=== PATIENT | female | born 1960 | race Caucasian/White ===

== ENCOUNTER 2018-03-24 11:10 | Emergency (ER) | payer BC ==
--- NOTE | 2018-03-24 12:00 | EDM.PDOC ---
ED HPI GENERAL MEDICAL PROBLEM - General Chief Complaint: Lower Extremity Injury/Pain Stated Complaint: right ankle pain Time Seen by Provider: 03/24/18 11:46 Source of Information: Reports: Patient History Limitations: Reports: No Limitations - History of Present Illness INITIAL COMMENTS - FREE TEXT/NARRATIVE: Patient presents today with right ankle pain. States was working outside yesterday and rolled her ankle. Did elevate and ice last evening but noted a fair amount of swelling and pain yet today. She has a history of multiple issues with her legs due to being crushed under a shredder picker a few years ago. She has had surgery on her right lower leg in the past. 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, NSAIDS Right Ankle Pain Score (Numeric/FACES): 4 - Related Data Allergies Allergy/AdvReac Type Severity Reaction Status Date / Time adhesive tape Allergy Rash Verified 03/24/18 11:17 amoxicillin Allergy Hives Verified 03/24/18 11:17 cefazolin Allergy Anaphylactic Verified 03/24/18 11:17 Shock clarithromycin Allergy Anaphylactic Verified 03/24/18 11:17 Shock clindamycin Allergy Anaphylactic Verified 03/24/18 11:17 Shock hydrocodone Allergy Hives Verified 03/24/18 11:17 iodine Allergy Hives Verified 03/24/18 11:17 latex Allergy Anaphylactic Verified 03/24/18 11:17 Shock metronidazole Allergy Anaphylactic Verified 03/24/18 11:17 Shock morphine Allergy Anaphylactic Verified 03/24/18 11:17 Shock oxycodone Allergy Anaphylactic Verified 03/24/18 11:17 Shock peanut Allergy Anaphylactic Verified 03/24/18 11:17 Shock TYLX Allergy Anaphylactic Uncoded 03/24/18 11:17 Shock Home Meds: Home Meds Albuterol Sulfate [Proair Respiclick] 2 puff INH Q4H PRN 07/19/17 [History] Albuterol/Ipratropium [DuoNeb 3.0-0.5 MG/3 ML] 1 puff INH Q4H PRN 07/19/17 [ History] Diclofenac Sodium [Diclofenac Sodium ER] 1 tab PO ASDIRECTED PRN 07/19/17 [ History] EPINEPHrine [Epinephrine] 0.3 mg IM ASDIRECTED PRN 07/19/17 [History] Loratadine/Pseudoephedrine [Claritin-D 24 Hour Tablet] 1 tab PO DAILY 07/19/17 [ History] Ibuprofen 600 mg PO BID PRN 03/24/18 [History] Past Medical History HEENT History: Reports: Impaired Vision, Other (See Below) Other HEENT History: WEARS CORRECTIVE LENS Cardiovascular History: Reports: None Respiratory History: Reports: Asthma, Other (See Below) Other Respiratory History: PLEURESY Gastrointestinal History: Reports: Chronic Diarrhea, Colon Polyp, Hemorrhoids, Other (See Below) Other Gastrointestinal History: abnormal liver tests Genitourinary History: Reports: None 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: Musculoskeletal History: Reports: Fracture, Other (See Below) Other Musculoskeletal History: CHRONIC PAIN IN LEGS Neurological History: Reports: Concussion, Head Trauma Psychiatric History: Reports: None Endocrine/Metabolic History: Reports: Obesity/BMI 30+ Hematologic History: Reports: Anemia Immunologic History: Reports: None Oncologic (Cancer) History: Reports: None Dermatologic History: Reports: Urticaria - Infectious Disease History Infectious Disease History: Reports: Measles, Mumps, Rubella - Past Surgical History Head Surgeries/Procedures: Reports: None HEENT Surgical History: Reports: Adenoidectomy, Oral Surgery, Tonsillectomy Cardiovascular Surgical History: Reports: None Respiratory Surgical History: Reports: None GI Surgical History: Reports: Colonoscopy, EGD, Hernia, Inguinal, Polypectomy Female Surgical History: Reports: None Endocrine Surgical History: Reports: None Neurological Surgical History: Reports: None Musculoskeletal Surgical History: Reports: ORIF Oncologic Surgical History: Reports: None Dermatological Surgical History: Reports: None Social & Family History - Family History Family Medical History: Noncontributory - Tobacco Use Smoking Status *Q: Never Smoker - Caffeine Use Caffeine Use: Reports: Coffee, Soda, Tea Other Caffeine Use: AVERAGE OF 2 8 OZ BEVERAGES DAILY - Recreational Drug Use Recreational Drug Use: No Review of Systems - Review of Systems Review Of Systems: ROS reveals no pertinent complaints other than HPI. ED EXAM, GENERAL - Physical Exam Exam: See Below Exam Limited By: No Limitations General Appearance: Alert, WD/WN, No Apparent Distress Head: Normocephalic Extremities: Joint Swelling, Limited Range of Motion (patient has pain with palpation of her lateral malleolar region. She admits that her range of motion is somewhat more limited but has chronic problems with flexion and extension as well. ) Skin Exam: Warm, Dry Course - Vital Signs Last Recorded V/S: Last Vital Signs Temp 97.4 F 03/24/18 11:13 Pulse 86 03/24/18 11:13 Resp 20 03/24/18 11:13 BP 155/95 H 03/24/18 11:13 Pulse Ox 96 03/24/18 11:13 - Orders/Labs/Meds Orders: Active Orders 24 hr Category Date Time Status Ankle Min 3V Rt [CR] Stat Exams 03/24/18 11:16 Taken - Re-Assessments/Exams Free Text/Narrative Re-Assessment/Exam: 03/24/18 Patient xrays are questionable for an avulsion fracture to the fibula. Air splint applied to ankle. Departure - Departure Time of Disposition: 11:59 Disposition: Home, Self-Care 01 Condition: Good Clinical Impression: Right ankle sprain - Discharge Information Referrals: PCP,None [Primary Care Provider] - Forms: ED Department Discharge Additional Instructions: 1. Rest 2. Elevate 3. Weight bear as tolerated 4. Keep air splint on until full radiology read, will call you with results 5. Ibuprofen for discomfort 6. Follow up if any ongoing concerns. - My Orders Last 24 Hours: My Active Orders 03/24/18 11:16 Ankle Min 3V Rt [CR] Stat - Assessment/Plan Last 24 Hours: My Active Orders 03/24/18 11:16 Ankle Min 3V Rt [CR] Stat
== END 2018-03-24 12:05 | disposition home or self-care (01) ==
LOC: CC.ED 11:10
DX: S93.401A Sprain of unspecified ligament of right ankle, initial encounter (principal); E66.9 Obesity, unspecified; Z91.040 Latex allergy status; Z88.5 Allergy status to narcotic agent; Z88.1 Allergy status to other antibiotic agents; Z91.018 Allergy to other foods; Z91.048 Other nonmedicinal substance allergy status; X50.9XXA Other and unspecified overexertion or strenuous movements or postures, initial encounter
CPT/HCPCS: 73610-RT; 99283

== ENCOUNTER 2018-06-27 12:49 | Observation (INO) | payer BC ==
--- NOTE | 2018-06-27 13:31 | EDM.PDOC ---
ED HPI GENERAL MEDICAL PROBLEM - General Chief Complaint: Head Injury Stated Complaint: HEAD INJURY Time Seen by Provider: 06/27/18 13:18 Source of Information: Reports: Patient History Limitations: Reports: No Limitations - History of Present Illness INITIAL COMMENTS - FREE TEXT/NARRATIVE: Patient presents to ER with complaints of dizziness with any sudden head movements. She fell off a ladder about 4 feet and hit her head on concrete. She does believe she lost consciousness for a short time as the paint can she had on the ladder was tipped over and empty when she came to. She has had a difficult time with movements and especially if she puts her head back. Has been nauseated with this. No vomiting. She states she can see if she focuses straight but the peripheral vision is "spinning". She denies any chest pain. No shortness of breath. Has not noted any numbness or tingling in extremities. No weakness in her arms or legs. Onset: Gradual Duration: Day(s):, Constant Location: Reports: Head Severity: Severe (severe vertigo) Improves with: Reports: Rest Worsens with: Reports: Movement Context: Reports: Trauma Associated Symptoms: Reports: Headaches, Nausea/Vomiting, Syncope Headache Pain Score (Numeric/FACES): 3 - Related Data Allergies Allergy/AdvReac Type Severity Reaction Status Date / Time adhesive tape Allergy Rash Verified 03/24/18 11:17 cefazolin Allergy Anaphylactic Verified 03/24/18 11:17 Shock clarithromycin Allergy Anaphylactic Verified 03/24/18 11:17 Shock clindamycin Allergy Anaphylactic Verified 03/24/18 11:17 Shock hydrocodone Allergy Hives Verified 03/24/18 11:17 iodine Allergy Hives Verified 03/24/18 11:17 latex Allergy Anaphylactic Verified 03/24/18 11:17 Shock metronidazole Allergy Anaphylactic Verified 03/24/18 11:17 Shock morphine Allergy Anaphylactic Verified 03/24/18 11:17 Shock oxycodone Allergy Anaphylactic Verified 03/24/18 11:17 Shock peanut Allergy Anaphylactic Verified 03/24/18 11:17 Shock TYLX Allergy Anaphylactic Uncoded 03/24/18 11:17 Shock Home Meds: Home Meds Albuterol Sulfate [Proair Respiclick] 1 - 2 puff INH Q4H PRN 07/19/17 [History] Albuterol/Ipratropium [DuoNeb 3.0-0.5 MG/3 ML] 1 puff INH Q4H PRN 07/19/17 [ History] Diclofenac Sodium [Diclofenac Sodium ER] 1 tab PO ASDIRECTED PRN 07/19/17 [ History] EPINEPHrine [Epinephrine] 0.3 mg IM ASDIRECTED PRN 07/19/17 [History] Loratadine/Pseudoephedrine [Claritin-D 24 Hour Tablet] 1 tab PO DAILY 07/19/17 [ History] Ibuprofen 600 mg PO BID PRN 03/24/18 [History] Past Medical History HEENT History: Reports: Impaired Vision, Other (See Below) Other HEENT History: WEARS CORRECTIVE LENS Cardiovascular History: Reports: None Respiratory History: Reports: Asthma, Other (See Below) Other Respiratory History: PLEURESY Gastrointestinal History: Reports: Chronic Diarrhea, Colon Polyp, Hemorrhoids, Other (See Below) Other Gastrointestinal History: abnormal liver tests Genitourinary History: Reports: None 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: Musculoskeletal History: Reports: Fracture, Other (See Below) Other Musculoskeletal History: CHRONIC PAIN IN LEGS Neurological History: Reports: Concussion, Head Trauma Psychiatric History: Reports: None Endocrine/Metabolic History: Reports: Obesity/BMI 30+ Hematologic History: Reports: Anemia Immunologic History: Reports: None Oncologic (Cancer) History: Reports: None Dermatologic History: Reports: Urticaria - Infectious Disease History Infectious Disease History: Reports: Measles, Mumps, Rubella - Past Surgical History Head Surgeries/Procedures: Reports: None HEENT Surgical History: Reports: Adenoidectomy, Oral Surgery, Tonsillectomy Cardiovascular Surgical History: Reports: None Respiratory Surgical History: Reports: None GI Surgical History: Reports: Colonoscopy, EGD, Hernia, Inguinal, Polypectomy Female Surgical History: Reports: None Endocrine Surgical History: Reports: None Neurological Surgical History: Reports: None Musculoskeletal Surgical History: Reports: ORIF Oncologic Surgical History: Reports: None Dermatological Surgical History: Reports: None Social & Family History - Family History Family Medical History: Noncontributory - Caffeine Use Caffeine Use: Reports: Coffee, Soda, Tea Other Caffeine Use: AVERAGE OF 2 8 OZ BEVERAGES DAILY ED ROS GENERAL - Review of Systems Review Of Systems: See Below Constitutional: Denies: Fever, Chills, Malaise, Weakness HEENT: Reports: Vertigo, Vision Change. Denies: Ear Discharge, Ear Pain, Hearing Loss, Rhinitis, Sinus Problem, Throat Pain Respiratory: Denies: Shortness of Breath, Cough Cardiovascular: Denies: Chest Pain, Edema, Lightheadedness Endocrine: Denies: Fatigue GI/Abdominal: Reports: Nausea. Denies: Abdominal Pain, Constipation, Diarrhea, Vomiting : Reports: No Symptoms Musculoskeletal: Reports: Muscle Stiffness Skin: Reports: No Symptoms Neurological: Reports: Dizziness, Headache, Syncope ED EXAM, HEAD INJURY - Physical Exam Exam: See Below Exam Limited By: No Limitations General Appearance: Alert, WD/WN, Mild Distress Head: Normocephalic Nexus Criteria: No: Posterior, Midline Cervical Tenderness, Evidence of Intoxication, Altered Level of Consciousness, Focal Neurological Deficit, Painful Distraction Injuries Eyes: Bilateral Eye: EOMI, Nystagmus, PERRL Ears: Normal External Exam, Normal TMs Nose: Normal Inspection, Normal Mucousa, No Blood Throat/Mouth: Normal Inspection, Normal Oropharynx Neck: Full Range of Motion, Paraspinous Muscle Tender. No: Spinous Processes Tender Respiratory: No Respiratory Distress, Lungs Clear, Normal Breath Sounds Cardiovascular: Regular Rate, Rhythm GI/Abdominal Exam: Normal Bowel Sounds, Soft, Non-Tender Extremities: Normal Inspection, Normal Range of Motion, Normal Capillary Refill Neurologic: dupligraph operator II-XII nml As Tested, No Motor/Sensory Deficits, Alert, Normal Mood/Affect, Oriented x 3, Other (dizziness is easily reproducible with lying back or mild head movements.) Skin: Normal Color, Warm/Dry - [place] Coma Score Best Eye Response ([place]): (4) Open Spontaneously Best Verbal Response ([place]): (5) Oriented Best Motor Response (Bobby): (6) Obeys Commands Course - Vital Signs Last Recorded V/S: Last Vital Signs Temp 98.0 F 06/27/18 16:15 Pulse 82 06/27/18 16:15 Resp 18 06/27/18 16:15 BP 126/66 06/27/18 16:15 Pulse Ox 97 06/27/18 16:15 - Orders/Labs/Meds Orders: Active Orders 24 hr Category Date Time Status Head wo Cont [CT] Stat Exams 06/27/18 12:57 Taken Promethazine [Phenergan] 25 mg Med 06/27/18 13:33 Active Sodium Chloride 0.9% [Normal Saline] 50 ml IV Q6H Medication Orders Acetaminophen (Tylenol) 650 mg PO Q4H PRN PRN Reason: Pain (Mild 1-3)/fever Last Admin: 06/27/18 17:25 Dose: 650 mg Promethazine HCl 25 mg/ Sodium (Chloride) 51 mls @ 100 mls/hr IV Q6H PRN PRN Reason: Nausea Last Admin: 06/27/18 13:43 Dose: 100 mls/hr Lactated Ringer's (Ringers, Lactated) 1,000 mls @ 75 mls/hr IV ASDIRECTED ORESTES Last Admin: 06/27/18 16:29 Dose: 75 mls/hr Ondansetron HCl (Zofran Odt) 4 mg PO Q4H PRN PRN Reason: nausea, able to take PO Ondansetron HCl (Zofran) 4 mg IV Q4H PRN PRN Reason: Nausea/Vomiting Sodium Chloride (Saline Flush) 10 ml FLUSH ASDIRECTED PRN PRN Reason: Keep Vein Open Temazepam (Restoril) 15 mg PO BEDTIME PRN PRN Reason: Sleep Labs: Laboratory Tests 06/27/18 06/27/18 06/27/18 Range/Units 13:18 13:18 13:18 WBC 7.9 (5.0-10.0) 10^3/uL RBC 4.61 (4.00-5.50) 10^6/uL Hgb 13.5 (12.0-16.0) g/dL Hct 40.7 (37.0-47.0) % MCV 88.3 (82.0-94.0) fL MCH 29.3 (27.0-32.0) pg MCHC 33.2 (33.0-38.0) g/dL RDW Coeff of William 12.9 (11.0-15.0) % Plt Count 275 (150-400) 10^3/uL Neut % (Auto) 57.6 (35-85) % Lymph % (Auto) 30.2 (10-55) % [place] % (Auto) 9.8 (0-16) % Eos % (Auto) 1.9 (0-5) % Baso % (Auto) 0.5 (0-3) % Neut # (Auto) 4.53 (1.80-7.00) 10^3/uL Lymph # (Auto) 2.38 (1.00-4.80) 10^3/uL [place] # (Auto) 0.77 (0.00-0.80) 10^3/uL Eos # (Auto) 0.15 (0.00-0.45) 10^3/uL Baso # (Auto) 0.04 10^3/uL PT 9.6 L (9.7-12.3) SEC INR 0.92 (0.92-1.18) APTT 27.5 (23.2-32.3) SEC Sodium 141 (136-145) mEq/L Potassium 4.2 (3.5-5.0) mEq/L Chloride 106 (98-106) mEq/L Carbon Dioxide 28 (21-32) mmol/L BUN 17 (7-18) mg/dL Creatinine 0.9 (0.6-1.0) mg/dL Est Cr Clr Drug Dosing 60.56 mL/min Estimated GFR (MDRD) > 60 (>=60) mL/min Glucose 107 H (75-99) mg/dL Calcium 9.0 (8.4-10.1) mg/dL Creatine Kinase 76 (21-215) U/L Troponin I < 0.017 (0.00-0.06) ng/mL Urine Color (YELLOW) Urine Appearance (CLEAR) Urine pH (4.5-8.0) Ur Specific [place] (1.003-1.020) Urine Protein (NEGATIVE) mg/dL Urine Glucose (UA) (NEGATIVE) mg/dL Urine Ketones (NEGATIVE) mg/dL Urine Occult Blood (NEGATIVE) Urine Nitrite (NEGATIVE) Urine Bilirubin (NEGATIVE) Urine Urobilinogen (0.2-1.0) EU/dL Ur Leukocyte Esterase (NEGATIVE) Urine RBC (0-5) /HPF Urine WBC (0-5) /HPF Ur Epithelial Cells (NOT SEEN) /HPF Urine Bacteria (NOT SEEN) /HPF Urinalysis Comment 06/27/18 Range/Units 13:43 WBC (5.0-10.0) 10^3/uL RBC (4.00-5.50) 10^6/uL Hgb (12.0-16.0) g/dL Hct (37.0-47.0) % MCV (82.0-94.0) fL MCH (27.0-32.0) pg MCHC (33.0-38.0) g/dL RDW Coeff of William (11.0-15.0) % Plt Count (150-400) 10^3/uL Neut % (Auto) (35-85) % Lymph % (Auto) (10-55) % [place] % (Auto) (0-16) % Eos % (Auto) (0-5) % Baso % (Auto) (0-3) % Neut # (Auto) (1.80-7.00) 10^3/uL Lymph # (Auto) (1.00-4.80) 10^3/uL [place] # (Auto) (0.00-0.80) 10^3/uL Eos # (Auto) (0.00-0.45) 10^3/uL Baso # (Auto) 10^3/uL PT (9.7-12.3) SEC INR (0.92-1.18) APTT (23.2-32.3) SEC Sodium (136-145) mEq/L Potassium (3.5-5.0) mEq/L Chloride (98-106) mEq/L Carbon Dioxide (21-32) mmol/L BUN (7-18) mg/dL Creatinine (0.6-1.0) mg/dL Est Cr Clr Drug Dosing mL/min Estimated GFR (MDRD) (>=60) mL/min Glucose (75-99) mg/dL Calcium (8.4-10.1) mg/dL Creatine Kinase (21-215) U/L Troponin I (0.00-0.06) ng/mL Urine Color Straw (YELLOW) Urine Appearance Slightly cloudy (CLEAR) Urine pH 5.5 (4.5-8.0) Ur Specific [place] >= 1.030 H (1.003-1.020) Urine Protein Negative (NEGATIVE) mg/dL Urine Glucose (UA) Negative (NEGATIVE) mg/dL Urine Ketones Trace H (NEGATIVE) mg/dL Urine Occult Blood Trace-lysed H (NEGATIVE) Urine Nitrite Negative (NEGATIVE) Urine Bilirubin Negative (NEGATIVE) Urine Urobilinogen 0.2 (0.2-1.0) EU/dL Ur Leukocyte Esterase Negative (NEGATIVE) Urine RBC 0-5 (0-5) /HPF Urine WBC 10-20 H (0-5) /HPF Ur Epithelial Cells Moderate H (NOT SEEN) /HPF Urine Bacteria Many H (NOT SEEN) /HPF Urinalysis Comment See note Meds: Medications Generic Name Dose Route Start Last Admin Trade Name Freq PRN Reason Stop Dose Admin Acetaminophen 650 mg 06/27/18 15:23 06/27/18 17:25 Tylenol PO 650 mg Q4H PRN Administration Pain (Mild 1-3)/fever Promethazine HCl 25 mg/ Sodium 51 mls @ 100 mls/hr 06/27/18 13:33 06/27/18 13 :43 Chloride IV 100 mls/hr Q6H PRN Administration Nausea Lactated Ringer's 1,000 mls @ 75 mls/hr 06/27/18 15:23 06/27/18 16:29 Ringers, Lactated IV 75 mls/hr ASDIRECTED ORESTES Administration Ondansetron HCl 4 mg 06/27/18 15:23 Zofran Odt PO Q4H PRN nausea, able to take PO Ondansetron HCl 4 mg 06/27/18 15:23 Zofran IV Q4H PRN Nausea/Vomiting Sodium Chloride 10 ml 06/27/18 15:23 Saline Flush FLUSH ASDIRECTED PRN Keep Vein Open Temazepam 15 mg 06/27/18 15:23 Restoril PO BEDTIME PRN Sleep - Re-Assessments/Exams Free Text/Narrative Re-Assessment/Exam: 06/27/18 13:36 CT scan of the head is negative. Departure - Departure Time of Disposition: 13:42 Disposition: Refer to Observation Clinical Impression: BPPV (benign paroxysmal positional vertigo) Qualifiers: Laterality: bilateral Qualified Code(s): H81.13 - Benign paroxysmal vertigo, bilateral - Discharge Information *PRESCRIPTION DRUG MONITORING PROGRAM REVIEWED*: No *COPY OF PRESCRIPTION DRUG MONITORING REPORT IN PATIENT MADAY: No - Problem List & Annotations (1) BPPV (benign paroxysmal positional vertigo) SNOMED Code(s): 916739301 Code(s): H81.10 - BENIGN PAROXYSMAL VERTIGO, UNSPECIFIED EAR Status: Acute Priority: High Current Visit: No Qualifiers: Laterality: bilateral Qualified Code(s): H81.13 - Benign paroxysmal vertigo , bilateral - Problem List Review Problem List Initiated/Reviewed/Updated: Yes - My Orders Last 24 Hours: My Active Orders 06/27/18 12:57 Head wo Cont [CT] Stat 06/27/18 13:33 Promethazine [Phenergan] 25 mg Sodium Chloride 0.9% [Normal Saline] 50 ml IV Q6H - Assessment/Plan Admission H&P: Please use this note as an admission H&P Last 24 Hours: My Active Orders 06/27/18 12:57 Head wo Cont [CT] Stat 06/27/18 13:33 Promethazine [Phenergan] 25 mg Sodium Chloride 0.9% [Normal Saline] 50 ml IV Q6H Assessment:: BPPV Plan: Admit to observation. IV fluids, phenergan and hopefully if settles down, can proceed with canalith repositioning tomorrow am.
[2018-06-27] MEDS ORDERED: Promethazine 25 MG in Sodium Chloride 0.9% 50 ML IV PRN (13:33)
[2018-06-27 13:35] LABS: CHLORIDE,CL 106 mEq/L (98-106); SODIUM,NA 141 mEq/L (136-145)
[2018-06-27] MEDS ORDERED: Temazepam 15 MG Cap PO PRN (15:23)
[2018-06-27] MEDS ORDERED: Ondansetron 4 MG/2 ML SDV IV PRN (15:23)
[2018-06-27] MEDS ORDERED: Ondansetron 4 MG Tab.DIS PO PRN (15:23)
[2018-06-27] MEDS ORDERED: Acetaminophen 325 MG Tab PO PRN (15:23)
[2018-06-27] MEDS ORDERED: Sodium Chloride 0.9% 10 ML Syringe FLUSH PRN (15:23)
[2018-06-27] MEDS: Lactated Ringers 1,000 ML IV SCH (16:29)
[2018-06-27] MEDS: Meclizine 12.5 MG Tab PO SCH (20:30)
[2018-06-28] MEDS: Lactated Ringers 1,000 ML IV SCH (05:59)
[2018-06-28 07:37] LABS: CHLORIDE,CL 104 mEq/L (98-106); SODIUM,NA 141 mEq/L (136-145)
[2018-06-28] MEDS: Meclizine 12.5 MG Tab PO SCH (08:03)
--- NOTE | 2018-06-30 19:30 | PCM.DCSUM1 ---
Discharge Summary - Hospital Course Free Text/Narrative:: Patient presented to ED with complaints of dizziness with any movement. She fell 4 ft off a ladder and did hit her head. Does believe had short LOC. Has continued to feel dizzy and nauseated over the last 24 hours since the fall. She denied any numbness, tingling or weakness in extremities. CT scan of the head done in the ER negative for acute changes. EKG and labs are all normal. Admitted and started on IV fluids. Physical therapy for canalith repositioning. Diagnosis: Stroke: No Modified Piotr Scale: No Symptoms at All Modified Pingree Scale Score: 0 - Discharge Data Discharge Date: 06/28/18 Discharge Disposition: Home, Self-Care 01 Condition: Good - Discharge Diagnosis/Problem(s) (1) BPPV (benign paroxysmal positional vertigo) SNOMED Code(s): 129560101 ICD Code: H81.10 - BENIGN PAROXYSMAL VERTIGO, UNSPECIFIED EAR Status: Acute Priority: High Qualifiers: Laterality: bilateral Qualified Code(s): H81.13 - Benign paroxysmal vertigo , bilateral - Patient Summary/Data Complications: none Consults: Consultations 06/27/18 15:23 PT Evaluation and Treatment [CONS] Routine Hospital Course: Patient doing well today. Did get some relief with Meclizine after admission. Movements today much improved. Canalith repositioning successful, felt much relief after procedure. Up and around herself today without assist. No nausea. Exam without nystagmus now. Will discharge home on Meclizine. - Patient Instructions Diet: Usual Diet as Tolerated Activity: As Tolerated - Discharge Plan *PRESCRIPTION DRUG MONITORING PROGRAM REVIEWED*: No *COPY OF PRESCRIPTION DRUG MONITORING REPORT IN PATIENT MADAY: No Prescriptions/Med Rec: Meclizine [Antivert] 25 mg PO TID #30 tablet Home Medications: Home Meds Albuterol Sulfate [Proair Respiclick] 1 - 2 puff INH Q4H PRN 07/19/17 [History] Albuterol/Ipratropium [DuoNeb 3.0-0.5 MG/3 ML] 1 puff INH Q4H PRN 07/19/17 [ History] Diclofenac Sodium [Diclofenac Sodium ER] 1 tab PO ASDIRECTED PRN 07/19/17 [ History] EPINEPHrine [Epinephrine] 0.3 mg IM ASDIRECTED PRN 10/12/17 [History] Loratadine/Pseudoephedrine [Claritin-D 24 Hour Tablet] 1 tab PO DAILY 07/19/17 [ History] Ibuprofen 600 mg PO BID PRN 03/24/18 [History] Meclizine [Antivert] 25 mg PO TID #30 tablet 06/28/18 [Rx] Patient Handouts: Benign Positional Vertigo Forms: ED Department Discharge Referrals: Abi Montoya PA [Primary Care Provider] - (Follow up in one week in [place] with Megan) - Discharge Summary/Plan Comment DC Time >30 min.: No Discharge Summary/Plan Comment: Discharge home today. Meclizine as needed for any further dizziness. - General Info Date of Service: 06/28/18 Admission Dx/Problem (Free Text: BPPV Functional Status: Reports: Pain Controlled, Tolerating Diet, Ambulating - Review of Systems General: Denies: Fever, Weakness, Fatigue HEENT: Denies: Ear Pain, Sinus Congestion, Rhinitis, Visual Changes Pulmonary: Denies: Shortness of Breath, Cough Cardiovascular: Denies: Chest Pain, Edema, Lightheadedness Gastrointestinal: Denies: Abdominal Pain, Nausea, Vomiting Genitourinary: Reports: No Symptoms Musculoskeletal: Reports: No Symptoms Skin: Reports: No Symptoms Neurological: Reports: Dizziness. Denies: Headache, Syncope, Weakness - Patient Data Vitals - Most Recent: Last Vital Signs Temp 97.0 F 06/28/18 08:00 Pulse 77 06/28/18 08:00 Resp 18 06/28/18 08:00 BP 137/78 06/28/18 08:00 Pulse Ox 97 06/28/18 08:00 Weight - Most Recent: 214 lb 3.2 oz Med Orders - Current: Current Medications Discontinued Medications Acetaminophen (Tylenol) 650 mg PO Q4H PRN PRN Reason: Pain (Mild 1-3)/fever Last Admin: 06/27/18 17:25 Dose: 650 mg Promethazine HCl 25 mg/ Sodium (Chloride) 51 mls @ 100 mls/hr IV Q6H PRN PRN Reason: Nausea Last Admin: 06/27/18 13:43 Dose: 100 mls/hr Lactated Ringer's (Ringers, Lactated) 1,000 mls @ 75 mls/hr IV ASDIRECTED ORESTES Last Admin: 06/28/18 05:59 Dose: 75 mls/hr Meclizine HCl (Antivert) 25 mg PO TID [facility] Last Admin: 06/28/18 08:03 Dose: 25 mg Ondansetron HCl (Zofran Odt) 4 mg PO Q4H PRN PRN Reason: nausea, able to take PO Ondansetron HCl (Zofran) 4 mg IV Q4H PRN PRN Reason: Nausea/Vomiting Sodium Chloride (Saline Flush) 10 ml FLUSH ASDIRECTED PRN PRN Reason: Keep Vein Open Temazepam (Restoril) 15 mg PO BEDTIME PRN PRN Reason: Sleep - Exam General: Reports: Alert, Oriented HEENT: Reports: Mucous Membr. Moist/[place] Neck: Reports: Supple Lungs: Reports: Clear to Auscultation, Normal Respiratory Effort Cardiovascular: Reports: Regular Rate, Regular Rhythm GI/Abdominal Exam: Normal Bowel Sounds, Soft, Non-Tender Extremities: Normal Inspection, No Pedal Edema Skin: Reports: Warm, Dry Neurological: Reports: No New Focal Deficit
== END 2018-06-28 13:05 | disposition home or self-care (01) ==
LOC: CC.ED 12:49 → CC.MS 13:46 → UNDOADMOB 14:20 → CC.MS 14:20
PROVIDERS: ADMIT Physician Assistant Medical; ATTEND Family Medicine
DX: H81.13 Benign paroxysmal vertigo, bilateral (principal); Z79.899 Other long term (current) drug therapy; W11.XXXA Fall on and from ladder, initial encounter
CPT/HCPCS: 36415; 70450; 80048; 81001; 82550; 84484; 85025; 85610; 85730; 93005; 96365; 97112; 99285; A9270; J2550; J7050; J7120; 96361; G0378

== ENCOUNTER 2020-08-26 09:59 | Emergency (ER) | payer BC ==
--- NOTE | 2020-08-26 10:39 | EDM.PDOC ---
ED HPI GENERAL MEDICAL PROBLEM - General Chief Complaint: General Stated Complaint: LEFT ANKLE PAIN Time Seen by Provider: 08/26/20 10:25 Source of Information: Reports: Patient History Limitations: Reports: No Limitations - History of Present Illness INITIAL COMMENTS - FREE TEXT/NARRATIVE: Twisted ankle when going down some steps carrying boxes. has pain to the ankle on the left side. Is able to move it but it causes pain. No numbness or tingling noted. Good sensation noted distally. Location: Reports: Lower Extremity, Left Left Ankle Pain Score (Numeric/FACES): 3 - Related Data Allergies Allergy/AdvReac Type Severity Reaction Status Date / Time adhesive tape Allergy Rash Verified 08/26/20 10:05 cefazolin Allergy Anaphylactic Verified 08/26/20 10:05 Shock clarithromycin Allergy Anaphylactic Verified 08/26/20 10:05 Shock clindamycin Allergy Anaphylactic Verified 08/26/20 10:05 Shock hydrocodone Allergy Hives Verified 08/26/20 10:05 iodine Allergy Hives Verified 08/26/20 10:05 latex Allergy Anaphylactic Verified 08/26/20 10:05 Shock metronidazole Allergy Anaphylactic Verified 08/26/20 10:05 Shock morphine Allergy Anaphylactic Verified 08/26/20 10:05 Shock oxycodone Allergy Anaphylactic Verified 08/26/20 10:05 Shock peanut Allergy Anaphylactic Verified 08/26/20 10:05 Shock TYLX Allergy Anaphylactic Uncoded 08/26/20 10:05 Shock Home Meds: Home Meds Albuterol Sulfate [Proair Respiclick] 1 - 2 puff INH Q4H PRN 07/19/17 [History] Albuterol/Ipratropium [DuoNeb 3.0-0.5 MG/3 ML] 1 puff INH Q4H PRN 07/19/17 [History] Diclofenac Sodium [Diclofenac Sodium ER] 1 tab PO ASDIRECTED PRN 07/19/17 [History] EPINEPHrine [Epinephrine] 0.3 mg IM ASDIRECTED PRN 07/19/17 [History] Loratadine/Pseudoephedrine [Claritin-D 24 Hour Tablet] 1 tab PO DAILY 07/19/17 [History] Ibuprofen 600 mg PO BID PRN 03/24/18 [History] Meclizine [Antivert] 25 mg PO TID #30 tablet 06/28/18 [Rx] Past Medical History HEENT History: Reports: Impaired Vision, Other (See Below) Other HEENT History: WEARS CORRECTIVE LENS Cardiovascular History: Reports: None Respiratory History: Reports: Asthma, Other (See Below) Other Respiratory History: PLEURESY Gastrointestinal History: Reports: Chronic Diarrhea, Colon Polyp, Hemorrhoids, Other (See Below) Other Gastrointestinal History: abnormal liver tests Genitourinary History: Reports: None [employer] History: Reports: Musculoskeletal History: Reports: Fracture, Other (See Below) Other Musculoskeletal History: CHRONIC PAIN IN LEGS Neurological History: Reports: Concussion, Head Trauma Psychiatric History: Reports: None Endocrine/Metabolic History: Reports: Obesity/BMI 30+ Hematologic History: Reports: Anemia Immunologic History: Reports: None Oncologic (Cancer) History: Reports: None Dermatologic History: Reports: Urticaria - Infectious Disease History Infectious Disease History: Reports: Measles, Mumps, Rubella - Past Surgical History Head Surgeries/Procedures: Reports: None HEENT Surgical History: Reports: Adenoidectomy, Oral Surgery, Tonsillectomy Cardiovascular Surgical History: Reports: None Respiratory Surgical History: Reports: None GI Surgical History: Reports: Colonoscopy, EGD, Hernia, Inguinal, Polypectomy Female Surgical History: Reports: None Endocrine Surgical History: Reports: None Neurological Surgical History: Reports: None Musculoskeletal Surgical History: Reports: ORIF Oncologic Surgical History: Reports: None Dermatological Surgical History: Reports: None Social & Family History - Family History Family Medical History: No Pertinent Family History - Tobacco Use Tobacco Use Status *Q: Never Tobacco User Second Hand Smoke Exposure: No - Caffeine Use Caffeine Use: Reports: Coffee, Soda, Tea Other Caffeine Use: AVERAGE OF 2 8 OZ BEVERAGES DAILY ED ROS GENERAL - Review of Systems Review Of Systems: See Below Constitutional: Reports: No Symptoms Respiratory: Reports: No Symptoms Cardiovascular: Reports: No Symptoms GI/Abdominal: Reports: No Symptoms Musculoskeletal: Reports: Leg Pain Skin: Denies: Bruising, Wound ED EXAM, GENERAL - Physical Exam Exam: See Below Exam Limited By: No Limitations General Appearance: Alert, WD/WN, Mild Distress Respiratory/Chest: No Respiratory Distress Cardiovascular: Regular Rate, Rhythm Extremities: Other (mild swelling noted to her ankle. No bruising or open areas noted. Good sensation nted.) Skin Exam: Warm, Dry, Intact Course - Vital Signs Last Recorded V/S: Last Vital Signs Temp 97.9 F 08/26/20 10:23 Pulse 78 08/26/20 10:23 Resp 18 08/26/20 10:23 BP 148/94 H 08/26/20 10:23 Pulse Ox 97 08/26/20 10:23 - Orders/Labs/Meds Orders: Active Orders 24 hr Category Date Time Status Ankle Min 3V Lt [CR] Stat Exams 08/26/20 10:06 Taken Departure - Departure Time of Disposition: 10:39 Disposition: Home, Self-Care 01 Clinical Impression: Sprain of ankle Qualifiers: Encounter type: initial encounter Involved ligament of ankle: unspecified ligament Laterality: left Qualified Code(s): S93.402A - Sprain of unspecified ligament of left ankle, initial encounter - Discharge Information *PRESCRIPTION DRUG MONITORING PROGRAM REVIEWED*: Not Applicable *COPY OF PRESCRIPTION DRUG MONITORING REPORT IN PATIENT MADAY: Not Applicable Additional Instructions: Elevate leg to help with swelling ICE if swelling noted tylenol or buprofen for discomfort AIr splint to help with stability Recheck if any new concerns Sepsis Event Note (ED) - Evaluation Sepsis Screening Result: No Definite Risk - Focused Exam Vital Signs: Vital Signs Temp Pulse Resp BP Pulse Ox 08/26/20 10:23 97.9 F 78 18 148/94 H 97 - Problem List & Annotations (1) Sprain of ankle SNOMED Code(s): 84623959 Code(s): S93.409A - SPRAIN OF UNSP LIGAMENT OF UNSPECIFIED ANKLE, INIT ENCNTR Status: Acute Priority: High Qualifiers: Encounter type: initial encounter Involved ligament of ankle: unspecified ligament Laterality: left Qualified Code(s): S93.402A - Sprain of unspecified ligament of left ankle, initial encounter - Problem List Review Problem List Initiated/Reviewed/Updated: Yes - My Orders Last 24 Hours: My Active Orders 08/26/20 10:06 Ankle Min 3V Lt [CR] Stat - Assessment/Plan Last 24 Hours: My Active Orders 08/26/20 10:06 Ankle Min 3V Lt [CR] Stat
== END 2020-08-26 10:55 | disposition home or self-care (01) ==
LOC: CC.ED 09:59
DX: S93.402A Sprain of unspecified ligament of left ankle, initial encounter (principal); J45.909 Unspecified asthma, uncomplicated; E66.9 Obesity, unspecified; Z68.26 Body mass index [BMI] 26.0-26.9, adult; Z91.010 Allergy to peanuts; Z88.1 Allergy status to other antibiotic agents; Z91.048 Other nonmedicinal substance allergy status; Z88.5 Allergy status to narcotic agent; Z91.040 Latex allergy status; X50.9XXA Other and unspecified overexertion or strenuous movements or postures, initial encounter
CPT/HCPCS: 73610-LT; 99283-25

== ENCOUNTER 2021-03-02 13:54 | Emergency (ER) | payer BC ==
[2021-03-02] MEDS ORDERED: fentaNYL 50 MCG/ML SDV IVPUSH ONE (14:16)
[2021-03-02] MEDS ORDERED: Ondansetron 4 MG/2 ML SDV IVPUSH PRN (14:25)
--- NOTE | 2021-03-02 14:58 | EDM.PDOC ---
ED HPI GENERAL MEDICAL PROBLEM - General Chief Complaint: Upper Extremity Injury/Pain Stated Complaint: LT ARM/FELL IN THE YARD Time Seen by Provider: 03/02/21 14:12 Source of Information: Reports: Patient History Limitations: Reports: No Limitations - History of Present Illness INITIAL COMMENTS - FREE TEXT/NARRATIVE: Lynda Quintero is a 60 year old female who presents with left wrist pain. was outside [employer] and tripped over a stump and landed on the weed eater. wrist was stuck between her body and the weed eater. Has pain and limited range of motion to her left wrist. Denies pain or injury elsewhere. Did not hit her head, no loss of consciousness. Onset: Today, Sudden Duration: Minutes:, Constant Location: Reports: Upper Extremity, Left Quality: Reports: Ache, Sharp Severity: Severe Improves with: Reports: Rest Worsens with: Reports: Movement Context: Reports: Trauma Associated Symptoms: Reports: Nausea/Vomiting - Related Data Allergies Allergy/AdvReac Type Severity Reaction Status Date / Time adhesive tape Allergy Rash Verified 03/02/21 14:05 cefazolin Allergy Anaphylactic Verified 03/02/21 14:05 Shock clarithromycin Allergy Anaphylactic Verified 03/02/21 14:05 Shock clindamycin Allergy Anaphylactic Verified 03/02/21 14:05 Shock hydrocodone Allergy Hives Verified 03/02/21 14:05 iodine Allergy Hives Verified 03/02/21 14:05 latex Allergy Anaphylactic Verified 03/02/21 14:05 Shock metronidazole Allergy Anaphylactic Verified 03/02/21 14:05 Shock morphine Allergy Anaphylactic Verified 03/02/21 14:05 Shock oxycodone Allergy Anaphylactic Verified 03/02/21 14:05 Shock peanut Allergy Anaphylactic Verified 03/02/21 14:05 Shock TYLX Allergy Anaphylactic Uncoded 03/02/21 14:05 Shock Home Meds: Home Meds Albuterol Sulfate [Proair Respiclick] 1 - 2 puff INH Q4H PRN 07/19/17 [History] Albuterol/Ipratropium [DuoNeb 3.0-0.5 MG/3 ML] 1 puff INH Q4H PRN 07/19/17 [History] Diclofenac Sodium [Diclofenac Sodium ER] 1 tab PO ASDIRECTED PRN 07/19/17 [Hist ory] EPINEPHrine [Epinephrine] 0.3 mg IM ASDIRECTED PRN 07/19/17 [History] Loratadine/Pseudoephedrine [Claritin-D 24 Hour Tablet] 1 tab PO DAILY 07/19/17 [History] Ibuprofen 600 mg PO BID PRN 03/24/18 [History] Celecoxib [CeleBREX] 100 mg PO DAILY 03/02/21 [History] Past Medical History HEENT History: Reports: Impaired Vision, Other (See Below) Other HEENT History: WEARS CORRECTIVE LENS Cardiovascular History: Reports: None Respiratory History: Reports: Asthma, Other (See Below) Other Respiratory History: PLEURISY Gastrointestinal History: Reports: Chronic Diarrhea, Colon Polyp, Hemorrhoids, Other (See Below) Other Gastrointestinal History: abnormal liver tests Genitourinary History: Reports: None [employer] History: Reports: Musculoskeletal History: Reports: Fracture (has had bilateral leg fractures with multiple repairs and revisions), Other (See Below) Other Musculoskeletal History: CHRONIC PAIN IN LEGS Neurological History: Reports: Concussion, Head Trauma Psychiatric History: Reports: None Endocrine/Metabolic History: Reports: Obesity/BMI 30+ Hematologic History: Reports: Anemia Immunologic History: Reports: None Oncologic (Cancer) History: Reports: None Dermatologic History: Reports: Urticaria - Infectious Disease History Infectious Disease History: Reports: Measles, Mumps, Rubella - Past Surgical History Head Surgeries/Procedures: Reports: None HEENT Surgical History: Reports: Adenoidectomy, Oral Surgery, Tonsillectomy Cardiovascular Surgical History: Reports: None Respiratory Surgical History: Reports: None GI Surgical History: Reports: Colonoscopy, EGD, Hernia, Inguinal, Polypectomy Female Surgical History: Reports: None Endocrine Surgical History: Reports: None Neurological Surgical History: Reports: None Musculoskeletal Surgical History: Reports: ORIF Oncologic Surgical History: Reports: None Dermatological Surgical History: Reports: None Social & Family History - Family History Family Medical History: No Pertinent Family History - Tobacco Use Tobacco Use Status *Q: Never Tobacco User Second Hand Smoke Exposure: No - Caffeine Use Caffeine Use: Reports: Coffee Other Caffeine Use: AVERAGE OF 2 8 OZ BEVERAGES DAILY - Recreational Drug Use Recreational Drug Use: No - Living Situation & Occupation Occupation: Retired Review of Systems - Review of Systems Review Of Systems: See Below Constitutional: Denies: Chills, Diaphoresis, Fever, Weakness Eyes: Reports: No Symptoms Ears: Reports: No Symptoms Nose: Reports: No Symptoms Mouth/Throat: Reports: No Symptoms Respiratory: Reports: No Symptoms Cardiovascular: Reports: No Symptoms GI/Abdominal: Reports: Nausea. Denies: Vomiting Musculoskeletal: Reports: Arm Pain, Joint Pain Skin: Reports: No Symptoms Neurological: Reports: Weakness ED EXAM, GENERAL - Physical Exam Exam: See Below Exam Limited By: No Limitations General Appearance: Alert, WD/WN, No Apparent Distress Ears: Normal External Exam, Normal TMs Nose: Normal Inspection, Normal Mucosa, No Blood Throat/Mouth: Normal Inspection, Normal Oropharynx Head: Normocephalic Neck: Normal Inspection, Supple, Non-Tender Respiratory/Chest: No Respiratory Distress, Lungs Clear, Normal Breath Sounds Cardiovascular: Regular Rate, Rhythm GI/Abdominal: Normal Bowel Sounds, Soft, Non-Tender Extremities: Pedal Edema (edema 1+ pitting) Neurological: Alert, Oriented Skin Exam: Warm, Dry Course - Orders/Labs/Meds Orders: Active Orders 24 hr Category Date Time Status Wrist Comp Min 3V Lt [CR] Routine Exams 03/02/21 Taken Ondansetron [Zofran] Med 03/02/21 14:25 Active 4 mg IVPUSH Q6H PRN Medication Orders Ondansetron HCl (Ondansetron 4 Mg/2 Ml Sdv) 4 mg IVPUSH Q6H PRN PRN Reason: Nausea/Vomiting Last Admin: 03/02/21 14:37 Dose: 4 mg Documented by: [email or web address] Meds: Medications Generic Name Dose Route Start Last Admin Trade Name Freq PRN Reason Stop Dose Admin Ondansetron HCl 4 mg 03/02/21 14:25 03/02/21 14:37 Ondansetron 4 Mg/2 Ml Sdv IVPUSH 4 mg Q6H PRN Administration Nausea/Vomiting Discontinued Medications Generic Name Dose Route Start Last Admin Trade Name Freq PRN Reason Stop Dose Admin Fentanyl 50 mcg 03/02/21 14:16 03/02/21 14:38 Fentanyl 50 Mcg/Ml Sdv IVPUSH 03/02/21 14:17 50 mcg ONETIME ONE Administration - Re-Assessments/Exams Free Text/Narrative Re-Assessment/Exam: 03/02/21 1430-Xrays positive for comminuted radial fracture of left wrist. Contacted Dr. May in regards to surgical repair. Will see patient in consult tomorrow with likely surgery on Sunday. 1445-Patient has multiple allergies in regards to pain meds. Has not taken anything for many years but has had significant reactions to oxycodone and hydrocodone. Does keep an Epi pen available, no noted allergies to Tramadol. Did tolerate Fentanyl. Will proceed with tramadol with caution as needs to hold her ibuprofen and Celebrex for surgery. Sugar tong one step placed to left wrist. 1500-H & P done, may proceed with surgery as a category II ASA risk. Departure - Departure Time of Disposition: 15:02 Disposition: Home, Self-Care 01 Condition: Fair Clinical Impression: Closed fracture of radius - Discharge Information *PRESCRIPTION DRUG MONITORING PROGRAM REVIEWED*: No *COPY OF PRESCRIPTION DRUG MONITORING REPORT IN PATIENT MADAY: No Instructions: Clavicle Fracture, [id number], Cast or Splint Care, Adult, [id number] Referrals: PCP,Unknown [Primary Care Provider] - Additional Instructions: 1. Rest 2. Elevate arm to reduce swelling 3. Ice frequently tonight 4. Tylenol or Tramadol for pain 5. See Dr. May at [facility] [place] tomorrow at 1:30 pm with likely surgery on Sunday - My Orders Last 24 Hours: My Active Orders 03/02/21 Wrist Comp Min 3V Lt [CR] Routine 03/02/21 14:25 Ondansetron [Zofran] 4 mg IVPUSH Q6H PRN - Assessment/Plan Last 24 Hours: My Active Orders 03/02/21 Wrist Comp Min 3V Lt [CR] Routine 03/02/21 14:25 Ondansetron [Zofran] 4 mg IVPUSH Q6H PRN
== END 2021-03-02 15:30 | disposition home or self-care (01) ==
LOC: CC.ED 13:54
DX: S52.92XA Unspecified fracture of left forearm, initial encounter for closed fracture (principal); R60.0 Localized edema; J45.909 Unspecified asthma, uncomplicated; Z91.010 Allergy to peanuts; Z91.040 Latex allergy status; Z91.041 Radiographic dye allergy status; Z88.5 Allergy status to narcotic agent; Z88.1 Allergy status to other antibiotic agents; Z88.8 Allergy status to other drugs, medicaments and biological substances; Z91.048 Other nonmedicinal substance allergy status; E66.9 Obesity, unspecified; Z68.39 Body mass index [BMI] 39.0-39.9, adult; W22.8XXA Striking against or struck by other objects, initial encounter
CPT/HCPCS: 73110; 96374; 96375; 99283; J2405; J3010

== ENCOUNTER 2024-05-03 08:30 | Emergency (ER) | payer MEDICARE | END 2024-05-03 09:15 | disposition home or self-care (01) | LOC: CC.ED 08:30 | DX: H60.502 Unspecified acute noninfective otitis externa, left ear (principal); I10 Essential (primary) hypertension; J45.909 Unspecified asthma, uncomplicated; E66.9 Obesity, unspecified; Z79.82 Long term (current) use of aspirin; Z79.899 Other long term (current) drug therapy; Z88.5 Allergy status to narcotic agent; Z88.1 Allergy status to other antibiotic agents; Z88.8 Allergy status to other drugs, medicaments and biological substances; Z91.048 Other nonmedicinal substance allergy status; Z91.040 Latex allergy status; Z91.010 Allergy to peanuts | CPT/HCPCS: 99283 ==